=== PATIENT | male | born 1960 | race Caucasian/White ===

== ENCOUNTER 2024-08-31 09:37 | Inpatient (IN) | payer MEDICARE, OTHER ==
[~2024-08-31] VITALS: Ht 327.7 cm; Wt 78.5 kg
[2024-08-31] MEDS: SODIUM CHLORIDE 0.9% (SEPSIS BOLUS) IV ONE (10:35)
[2024-08-31 10:49] LABS: CHLORIDE 105 mEq/L (98-107); POTASSIUM 3.9 mEq/L (3.5-5.1); SODIUM 141 mEq/L (136-145)
[2024-08-31] MEDS: CEFTRIAXONE 1GM/50ML 50 ML IV ONE (10:49)
[2024-08-31 10:50] LABS: CALCIUM 9.1 mg/dL (8.7-10.4); CARBON DIOXIDE 26 mEq/L (21-32)
[2024-08-31 10:53] LABS: HEMATOCRIT. 41.7 % (42.0-52.0); HEMOGLOBIN. 13.9 g/dL (14.0-18.0); MEAN CORPUSCULAR HEMOGLOBIN 31.1 pg (28.0-32.0); MEAN CORPUSCULAR HGB CONC 33.4 g/dL (31.0-37.0); MEAN CORPUSCULAR VOLUME 93.1 fL (80.0-94.0); MEAN PLATELET VOLUME 7.4 fl (7.4-10.4); PLATELET 192 x1000/uL (130-400); RED BLOOD CELL COUNT 4.48 mill/uL (4.7-6.1); RED CELL DISTRIBUTION WIDTH 12.7 % (11.6-14.6); WHITE BLOOD COUNT 16.5 x1000/uL (4.5-11.0)
[2024-08-31 10:55] LABS: CREATININE 1.4 mg/dL (0.6-1.3); GLUCOSE 95 mg/dL (70-105); UREA NITROGEN BLOOD 18 mg/dL (9-23)
[2024-08-31 10:56] LABS: DIFFERENTIAL COMMENT 1
[2024-08-31 10:57] LABS: ALANINE AMINOTRANSFERASE 15 IU/L (10-49); ALBUMIN 3.8 g/dL (3.2-4.8); ASPARTATE AMINOTRANSFERASE 23 IU/L (<34); BILIRUBIN DIRECT 0.3 mg/dL (<=3.0); BILIRUBIN TOTAL 0.8 mg/dL (0.1-1.0); LACTIC ACID 2.9 mmol/L (0.4-2.0); PROTEIN TOTAL 6.5 g/dL (6.0-8.3)
[2024-08-31 11:01] LABS: INR 1.2; PROTHROMBIN TIME 12.5 sec (9.6-11.0)
[2024-08-31] MEDS: BENZTROPINE MESYLATE 1 MG/ML 2ML VIAL IM NR (13:10)
[2024-08-31] MEDS: ZIPRASIDONE MESYLATE 20MG/VIAL IM ONE (13:10)
[2024-08-31] MEDS ORDERED: ONDANSETRON HCL 4MG/2ML INJ IV PRN (13:45)
[2024-08-31] MEDS ORDERED: IPRATROPIUM/ALBUTEROL 0.5-3(2.5)MG/3ML NEB NEB PRN (13:45)
[2024-08-31] MEDS ORDERED: CLONIDINE 0.1MG TABLET PO PRN (13:45)
[2024-08-31] MEDS ORDERED: HYDROCODONE/ACETAMINOPHEN 5/325MG TABLET PO PRN (13:45)
[2024-08-31] MEDS: LORAZEPAM 2MG/ML INJ IM ONE (15:13)
[2024-08-31] MEDS: SODIUM CHLORIDE 0.9% 1,000 ML IV SCH (15:21)
[2024-08-31] MEDS: PIPERACILLIN/TAZO 3.375G/50ML IV SCH (15:22)
[2024-08-31] MEDS ORDERED: NALOXONE HCL 0.4MG/ML VIAL IV PRN (15:30)
[2024-08-31] MEDS ORDERED: PIPERACILLIN/TAZO 3.375G/50ML 50 ML IV SCH (15:30)
[2024-08-31] MEDS: PANTOPRAZOLE SODIUM 40 MG/VIAL IV SCH (15:30)
[2024-08-31] MEDS: VANCOMYCIN 1.5GM/250ML 250 ML IV NR (15:30)
[2024-08-31] MEDS: LORAZEPAM 2MG/ML INJ IV PRN (17:19)
[2024-08-31] MEDS: HALOPERIDOL LACTATE 5MG/ML VIAL IM PRN (17:19)
[2024-08-31] MEDS ORDERED: HALOPERIDOL LACTATE 5MG/ML VIAL IM NR (17:45)
[2024-08-31] MEDS ORDERED: DIPHENHYDRAMINE 50MG/ML VIAL IV NR (17:45)
[2024-08-31] MEDS ORDERED: LORAZEPAM 2MG/ML INJ IV NR (17:45)
[2024-08-31] MEDS: ENOXAPARIN 40MG/0.4ML SYR SUBCUT SCH (17:57)
[2024-08-31 20:00] VITALS: BP 107/60; PULSE 56; RESP 18; TEMP 36.3; O2SAT 96
[2024-08-31] MEDS ORDERED: ZOLPIDEM TARTRATE 5MG TABLET PO PRN (21:00)
[2024-08-31] MEDS: TERBINAFINE HCL 1% CREAM 15GM TOP SCH (23:04)
[2024-09-01] VITALS: BP 151/67; PULSE 68; RESP 18; TEMP 36.3; O2SAT 98
[2024-09-01] MEDS: VANCOMYCIN 750MG/150ML (BAXTER) IV SCH (00:43)
[2024-09-01 04:00] VITALS: BP 96/52; PULSE 60; RESP 18; TEMP 36.3; O2SAT 100
[2024-09-01 08:00] VITALS: BP 118/66; PULSE 48; RESP 18; TEMP 36.1; O2SAT 100
[2024-09-01 08:11] LABS: BASOPHILS % 0.3 % (0.0-2.0); EOSINOPHILS % 0.3 % (0.0-5.0); HEMATOCRIT. 35.2 % (42.0-52.0); HEMOGLOBIN. 12.1 g/dL (14.0-18.0); LYMPHOCYTES % 11.5 % (20.0-50.0); MEAN CORPUSCULAR HEMOGLOBIN 32.4 pg (28.0-32.0); MEAN CORPUSCULAR HGB CONC 34.3 g/dL (31.0-37.0); MEAN CORPUSCULAR VOLUME 94.5 fL (80.0-94.0); NEUTROPHILS % 77.9 % (40.0-76.0); PLATELET 166 x1000/uL (130-400); RED BLOOD CELL COUNT 3.72 mill/uL (4.7-6.1); RED CELL DISTRIBUTION WIDTH 12.9 % (11.6-14.6); WHITE BLOOD COUNT 7.5 x1000/uL (4.5-11.0)
[2024-09-01 08:18] LABS: CARBON DIOXIDE 26 mEq/L (21-32); CHLORIDE 109 mEq/L (98-107); POTASSIUM 3.4 mEq/L (3.5-5.1); SODIUM 141 mEq/L (136-145)
[2024-09-01 08:20] LABS: CALCIUM 8.1 mg/dL (8.7-10.4)
[2024-09-01 08:24] LABS: CREATININE 0.9 mg/dL (0.6-1.3); GLUCOSE 89 mg/dL (70-105); UREA NITROGEN BLOOD 12 mg/dL (9-23)
[2024-09-01] MEDS: PIPERACILLIN/TAZO 3.375G/50ML 50 ML IV SCH (08:33)
[2024-09-01 12:00] VITALS: BP 122/72; PULSE 70; RESP 20; TEMP 36.7; O2SAT 99
[2024-09-01 12:32] LABS: PLATELET ESTIMATE NORMAL
[2024-09-01 16:00] VITALS: BP 123/68; PULSE 60; RESP 20; TEMP 36.7; O2SAT 97
[2024-09-01 20:00] VITALS: BP 115/68; PULSE 82; RESP 18; TEMP 36.3; O2SAT 96
[2024-09-02] VITALS (7 sets, daily range): BP systolic 111–136; BP diastolic 64–79; PULSE 62–89; RESP 16–20; TEMP 36.4–37.3; O2SAT 96–98
[2024-09-02 07:44] LABS: BASOPHILS % 0.3 % (0.0-2.0); EOSINOPHILS % 0.6 % (0.0-5.0); HEMATOCRIT. 36.7 % (42.0-52.0); HEMOGLOBIN. 12.6 g/dL (14.0-18.0); LYMPHOCYTES % 14.7 % (20.0-50.0); MEAN CORPUSCULAR HGB CONC 34.3 g/dL (31.0-37.0); MEAN CORPUSCULAR VOLUME 93.3 fL (80.0-94.0); MEAN PLATELET VOLUME 8.7 fl (7.4-10.4); MONOCYTES % 10.9 % (2.0-8.0); NEUTROPHILS % 73.5 % (40.0-76.0); PLATELET 164 x1000/uL (130-400); RED BLOOD CELL COUNT 3.94 mill/uL (4.7-6.1); RED CELL DISTRIBUTION WIDTH 12.9 % (11.6-14.6); WHITE BLOOD COUNT 7.5 x1000/uL (4.5-11.0)
[2024-09-02 07:51] LABS: CALCIUM 8.3 mg/dL (8.7-10.4); CARBON DIOXIDE 25 mEq/L (21-32); CHLORIDE 107 mEq/L (98-107); POTASSIUM 4.2 mEq/L (3.5-5.1); SODIUM 139 mEq/L (136-145)
[2024-09-02 07:57] LABS: CREATININE 0.9 mg/dL (0.6-1.3); GLUCOSE 94 mg/dL (70-105); UREA NITROGEN BLOOD 9 mg/dL (9-23)
[2024-09-02] MEDS: ACETAMINOPHEN 325MG TABLET PO PRN (18:27)
[2024-09-02] MEDS: RISPERIDONE 1MG TABLET PO SCH (23:00)
[2024-09-03] VITALS: BP 122/65; PULSE 82; RESP 16; TEMP 36; O2SAT 98
[2024-09-03 04:00] VITALS: BP 107/71; PULSE 55; RESP 17; TEMP 36.4; O2SAT 98
[2024-09-03 08:00] VITALS: BP 145/79; PULSE 80; RESP 18; TEMP 36.7; O2SAT 98
[2024-09-03 08:30] LABS: CHLORIDE 105 mEq/L (98-107); POTASSIUM 3.8 mEq/L (3.5-5.1); SODIUM 139 mEq/L (136-145)
[2024-09-03 08:31] LABS: CARBON DIOXIDE 26 mEq/L (21-32)
[2024-09-03 08:32] LABS: CALCIUM 8.5 mg/dL (8.7-10.4)
[2024-09-03 08:36] LABS: CREATININE 0.9 mg/dL (0.6-1.3); GLUCOSE 87 mg/dL (70-105); UREA NITROGEN BLOOD 8 mg/dL (9-23)
[2024-09-03 08:54] LABS: BASOPHILS % 0.3 % (0.0-2.0); EOSINOPHILS % 1.2 % (0.0-5.0); HEMATOCRIT. 35.3 % (42.0-52.0); HEMOGLOBIN. 12.2 g/dL (14.0-18.0); LYMPHOCYTES % 22.6 % (20.0-50.0); MEAN CORPUSCULAR HEMOGLOBIN 31.9 pg (28.0-32.0); MEAN CORPUSCULAR HGB CONC 34.7 g/dL (31.0-37.0); MEAN CORPUSCULAR VOLUME 91.9 fL (80.0-94.0); MEAN PLATELET VOLUME 8.1 fl (7.4-10.4); MONOCYTES % 11.3 % (2.0-8.0); NEUTROPHILS % 64.6 % (40.0-76.0); PLATELET 169 x1000/uL (130-400); RED BLOOD CELL COUNT 3.83 mill/uL (4.7-6.1); RED CELL DISTRIBUTION WIDTH 12.5 % (11.6-14.6); WHITE BLOOD COUNT 6.8 x1000/uL (4.5-11.0)
[2024-09-03 12:00] VITALS: BP 113/68; PULSE 60; RESP 16; TEMP 37.1; O2SAT 98
[2024-09-03] MEDS ORDERED: BENZ1TAB79 PO (15:24)
[2024-09-03] MEDS ORDERED: VALP250S25 PO (15:24)
[2024-09-03] MEDS ORDERED: RISP4TAB93 PO (15:24)
[2024-09-03] MEDS ORDERED: RISP3TAB76 PO (15:24)
[2024-09-03 16:00] VITALS: BP 120/70; PULSE 65; RESP 16; TEMP 36.6; O2SAT 98
[2024-09-03] MEDS: BENZTROPINE MESYLATE 1MG TABLET PO SCH (17:07)
[2024-09-03] MEDS: VALPROIC ACID 250MG CAPSULE PO SCH (22:00)
[2024-09-04 08:00] VITALS: BP 126/72; PULSE 60; RESP 18; TEMP 36.8; O2SAT 96; O2SAT 99
[2024-09-04 12:00] VITALS: BP 111/64; PULSE 63; RESP 18; TEMP 36.9; O2SAT 100
[2024-09-04 16:00] VITALS: BP 115/69; PULSE 65; RESP 18; TEMP 36.8; O2SAT 98
[2024-09-04 17:19] VITALS: BP 124/67; PULSE 62; TEMP 97.1; O2SAT 98
[2024-09-04 20:00] VITALS: BP 120/72; PULSE 64; RESP 16; TEMP 36.6; O2SAT 95
== END 2024-09-04 19:18 | DRG 871 ==
LOC: ER 09:37 → EDBEDREQ 12:58 → EDBEDREQTM 12:58 → EDBEDREQ 18:36 → 5WST 18:47
PROVIDERS: ADMIT Internal Medicine; ATTEND Internal Medicine
DX: A41.9 Sepsis, unspecified organism (principal); G93.41 Metabolic encephalopathy; E87.20 Acidosis, unspecified; J98.11 Atelectasis; R65.20 Severe sepsis without septic shock; I10 Essential (primary) hypertension; B35.0 Tinea barbae and tinea capitis; D64.9 Anemia, unspecified; F20.9 Schizophrenia, unspecified; F32.A Depression, unspecified; G24.9 Dystonia, unspecified; I95.9 Hypotension, unspecified; N40.0 Benign prostatic hyperplasia without lower urinary tract symptoms; Z79.899 Other long term (current) drug therapy; Z78.1 Physical restraint status
CPT/HCPCS: 36415; 71045; 74176; 80048; 80076; 80202; 82962; 83605; 84145; 85025; 93005; 93970; 99291; A4606; J0515; J0696; J1630; J1650; J2060; J2470; J2543; J3370; J3486; J7030